=== PATIENT | male | born 1965 | race Caucasian/White ===

== ENCOUNTER 2019-06-29 20:35 | Emergency (ER) | payer OTHER ==
[~2019-06-29] VITALS: Ht 162.6 cm; Wt 89.8 kg
[~2019-06-29 20:35] MED LIST: ALBUTEROL INH; AZITHROMYCIN 2250 MG PO; MEDROLDOSEPACK PO; PREDNISONE 20 M20 MG PO; PROAIR HFA8.5 GM IH; ZPAK PO
[2019-06-29] MEDS ORDERED: SUPER THERAVIT1 EACH PO (21:05)
[2019-06-29] MEDS ORDERED: CLARITIN10 M3 PO (21:06)
[2019-06-29] MEDS ORDERED: NABUMETONE 750750 M1 PO (21:58)
[2019-06-29 22:19] VITALS: BP 139/86
== END 2019-06-29 22:19 | disposition home or self-care (01) ==
LOC: M.ERS 20:35
DX: S93.491A Sprain of other ligament of right ankle, initial encounter (principal); J45.909 Unspecified asthma, uncomplicated; X50.1XXA Overexertion from prolonged static or awkward postures, initial encounter; Y93.89 Activity, other specified; Y92.89 Other specified places as the place of occurrence of the external cause; Y99.8 Other external cause status